=== PATIENT | female | born 1985 | race Caucasian/White ===

== ENCOUNTER 2021-05-03 10:12 | Emergency (ER) | payer BC ==
[~2021-05-03] VITALS: Ht 157.5 cm; Wt 61.2 kg
[2021-05-03] MEDS ORDERED: NOHOMEMEDICATIONS (10:30)
[2021-05-03 10:33] LABS: URINE BILIRUBIN NEGATIVE (Negative); URINE BLOOD 1+ (Negative); URINE CLARITY CLEAR; URINE COLOR YELLOW; URINE GLUCOSE-RANDOM NEGATIVE (Negative); URINE KETONES NEGATIVE (Negative); URINE NITRITE-REFLEX NEGATIVE (Negative); URINE PROTEIN NEGATIVE (Negative); URINE UROBILINOGEN 0.2 E.U./dl (0.2-1.0)
[2021-05-03 10:40] LABS: URINE LEUKOCYTES-REFLEX 3+ (Negative)
[2021-05-03 10:45] LABS: SQUAMOUS 4-10 Moderate /LPF (0-3); URINE WBC-REFLEX >25 Many /HPF (0-5)
[2021-05-03 10:46] LABS: BACTERIA-REFLEX 1-9 Few /HPF (None Seen); CASTS None Seen /LPF (None Seen); CRYSTALS None Seen /LPF (None Seen); MUCUS None Seen strn/LPF (None Seen); URINE RBC 3-10 Few /HPF (0-2)
[2021-05-03] MEDS ORDERED: CEPHALEXIN500 MG PO (10:47)
[2021-05-03] MEDS ORDERED: PYRIDIUM200 MG PO (10:48)
[2021-05-03 10:51] VITALS: BP 125/86
== END 2021-05-03 10:53 | disposition home or self-care (01) ==
LOC: M.ERS 10:12
PROVIDERS: Emergency Medicine Emergency Medical Services
DX: N39.0 Urinary tract infection, site not specified (principal)